=== PATIENT | female | born 1985 | race African-American/Black ===

== ENCOUNTER 2025-10-21 00:58 | Emergency (ER) | payer MEDICAID, OTHER ==
[~2025-10-21] VITALS: Ht 162.6 cm; Wt 74.5 kg
[~2025-10-21 00:58] MED LIST: ANTI-EMETIC PO
[2025-10-21 01:07] VITALS: TEMP 98.2
[2025-10-21 02:42] LABS: PLATELET COUNT (AUTO) 513 K/uL (150-450); RED BLOOD CELL COUNT(AUTO) 3.72 MIL/uL (4.00-5.20); RED CELL DISTRIBUTION WIDTH 20.8 % (11.5-14.5); WHITE BLOOD COUNT (AUTO) 7.1 K/uL (4.5-11.0)
[2025-10-21 02:53] LABS: CALCIUM, TOTAL 8.5 mg/dL (8.8-10.5); CREATININE 0.66 mg/dL (0.60-1.30); GLOMERULAR FILTR. RATE CALC > 60 mL/min (>60); GLUCOSE,RANDOM 111 mg/dL (70-110); SODIUM SERUM 138 mmol/L (136-145); UREA NITROGEN, BLOOD 12 mg/dL (7-18)
[2025-10-21 02:59] LABS: ASPARTATE AMINOTRANSFERASE 30.0 U/L (15-37); TOTAL PROTEIN, SERUM 7.0 g/dL (6.4-8.2)
[2025-10-21] MEDS ORDERED: NIFE-40 PO (03:51)
[2025-10-21 04:14] VITALS: BP 129/72; PULSE 79; RESP 16; O2SAT 100
== END 2025-10-21 04:27 | disposition home or self-care (01) ==
LOC: EMS 00:58
DX: O13.9 Gestational [pregnancy-induced] hypertension without significant proteinuria, unspecified trimester (principal); Z87.59 Personal history of other complications of pregnancy, childbirth and the puerperium
CPT/HCPCS: 80048; 80076; 83690; 85025; 93005; 99284